=== PATIENT | female | born 1955 | race Caucasian/White ===

== ENCOUNTER → 2017-04-15 | Outpatient (CLI) | payer OTHER ==
[~2017-04-15] VITALS: Ht 175.3 cm; Wt 112.0 kg
[~2017-04-15] MED LIST: BREO ELLIPTA 21 EACH IH; DOXYCYCLINE HY100 M3 PO; EFFEXOR XR150 MG PO; EFFEXOR XR37.5 MG PO; GLUCOPHAGE500 MG PO; INCRUSE ELLI62.5 MCG IH; KEFLEX500 MG PO; KLONOPIN0.5 M1 PO; LITHIUM CARBON300 M2 PO; LOSARTAN-HCTZ1 EAC1 PO; NORVASC5 MG PO; PROAIR RESPICL90 MCG IH; ULTRAM50 MG PO; VENTOLIN HFA18 GM IH
[2017-04-15 11:23] LABS: POINT-OF-CARE METER ID UU14107333
== END | disposition home or self-care (01) ==
LOC: AMB 10:30
PROVIDERS: Internal Medicine
DX: Z12.11 Encounter for screening for malignant neoplasm of colon (principal); D12.2 Benign neoplasm of ascending colon; D12.3 Benign neoplasm of transverse colon; D12.8 Benign neoplasm of rectum; K63.5 Polyp of colon; K57.30 Diverticulosis of large intestine without perforation or abscess without bleeding; K62.1 Rectal polyp; K64.8 Other hemorrhoids; I10 Essential (primary) hypertension; E11.9 Type 2 diabetes mellitus without complications; Z79.84 Long term (current) use of oral hypoglycemic drugs; F17.200 Nicotine dependence, unspecified, uncomplicated
CPT/HCPCS: 82948; 88305; 93005; J2250; J3010